=== PATIENT | female | born 1935 | race African-American/Black ===

== ENCOUNTER → 2016-12-23 | Outpatient (CLI) | payer MEDICARE, OTHER | LOC: WI 09:19 | PROVIDERS: ATTEND Family Medicine | DX: Z12.31 Encounter for screening mammogram for malignant neoplasm of breast (principal) | CPT/HCPCS: 77067; G0202 ==

== ENCOUNTER 2017-01-20 00:15 | Emergency (ER) | payer MEDICARE, OTHER ==
[2017-01-20 01:52] LABS: ABSOLUTE EOSINOPHILS # (AUTO) 0.1 10^3/uL (0.0-0.6); ABSOLUTE LYMPHOCYTES (AUTO) 1.3 10^3/uL (0.5-4.7); ABSOLUTE MONOCYTES (AUTO) 0.7 10^3/uL (0.1-1.4); ABSOLUTE NEUT (AUTO) 3.3 10^3/uL (1.7-8.2); BASOPHILS % (AUTO) 0.5 % (0-2); EOSINOPHILS % (AUTO) 1.4 % (0-6); HEMATOCRIT 38.2 % (36.0-47.0); HEMOGLOBIN 12.4 g/dL (12.0-15.5); LYMPHOCYTES % (AUTO) 24.7 % (13-45); MEAN CORPUSCULAR HEMOGLOBIN 27.2 pg (27.0-33.4); MEAN CORPUSCULAR HGB CONC 32.6 g/dL (32.0-36.0); MEAN CORPUSCULAR VOLUME 84 fl (80-97); MONOCYTES % (AUTO) 12.9 % (3-13); RED BLOOD COUNT 4.58 10^6/uL (3.72-5.28); SEGMENTED NEUTROPHILS % (AUTO) 60.5 % (42-78); WHITE BLOOD COUNT 5.4 10^3/uL (4.0-10.5)
[2017-01-20 02:03] LABS: ANION GAP 13 (5-19); BLOOD UREA NITROGEN 27 mg/dL (7-20); CALCIUM 9.9 mg/dL (8.4-10.2); CARBON DIOXIDE 26 mmol/L (22-30); CHLORIDE 98 mmol/L (98-107); GLUCOSE 119 mg/dL (75-110); MAGNESIUM 2.3 mg/dL (1.6-2.3); POTASSIUM 4.4 mmol/L (3.6-5.0); SODIUM 137.2 mmol/L (137-145)
--- NOTE | 2017-01-20 02:54 | ER Document Report ---
ED Blood Pressure Problem - General Chief Complaint: High Blood Pressure Stated Complaint: BLOOD PRESSURE ISSUES Time Seen by Provider: 01/20/17 00:30 Notes: This 81-year-old female presents emergency department complaining of elevated blood pressure with burning in her feet with sudden onset this evening. She states thats how she new her BP was high. She states she has a cuff at home but to afraid to chck so she came to the ER. Otherwise denies any chest pain, blurry vision, headache. PMH s/f Patient states that she recently had a Prolia shot last week. TRAVEL OUTSIDE OF THE [place] IN LAST 30 DAYS: No - Related Data Allergies/Adverse Reactions: No Known Allergies Allergy (Verified 08/25/15 14:09) Past Medical History - Social History Smoking Status: Unknown if Ever Smoked Family History: Reviewed & Not Pertinent Patient has suicidal ideation: No Patient has homicidal ideation: No Renal/ Medical History: Denies: Hx Peritoneal Dialysis - Immunizations Hx Diphtheria, Pertussis, Tetanus Vaccination: No Review of Systems - Review of Systems Constitutional: No symptoms reported EENT: No symptoms reported Cardiovascular: No symptoms reported Respiratory: No symptoms reported Gastrointestinal: No symptoms reported Female Genitourinary: No symptoms reported Musculoskeletal: No symptoms reported Skin: See HPI Hematologic/Lymphatic: No symptoms reported Neurological/Psychological: No symptoms reported Physical Exam - Vital signs Vitals: Temp Pulse Resp BP Pulse Ox 97.6 F 120 H 16 209/125 H 99 01/20/17 00:16 01/20/17 00:16 01/20/17 00:16 01/20/17 00:16 01/20/17 00:16 - Notes Notes: PHYSICAL EXAM GENERAL: Alert, interacts well. HEAD: Normocephalic, atraumatic. EYES: Pupils equal, round, and reactive to light. Extraocular movements intact. ENT: Oral mucosa moist, tongue midline. NECK: Full range of motion. Supple. Trachea midline. LUNGS: Clear to auscultation bilaterally, no wheezes, rales, or rhonchi. No respiratory distress. HEART: Regular rate and rhythm. No murmurs, gallops, or rubs. ABDOMEN: Soft, nondistended, nontender. No guarding, rebound, or rigidity.. Bowel sounds present in all 4 quadrants. EXTREMITIES: Moves all 4 extremities spontaneously. No edema, radial and dorsalis pedis pulses 2/4 bilaterally. No cyanosis. NEUROLOGICAL: Alert and oriented x4. Normal speech. PSYCH: Normal affect, normal mood. SKIN: Warm, dry, normal turgor. No rashes or lesions noted. Course - Re-evaluation Re-evalutation: 01/20/17 07:48 Patient is a 81-year-old female who is hemodynamic stable, no acute distress and afebrile. No clinical suspicion for hypertensive urgency or emergency since patient is asymptomatic. Patient's electrolytes sent to evaluate for any associated hypocalcemia given symptoms are consistent with side effects after Prolia injection. All joints within normal limits. Patient blood pressure monitor has been stable with the systolics in the 160s. Patient is stable for discharge home with instruction to follow-up with primary care in 1 week - Vital Signs Vital signs: Temp Pulse Resp BP Pulse Ox 97.6 F 120 H 13 147/80 H 97 01/20/17 00:16 01/20/17 00:16 01/20/17 02:31 01/20/17 02:31 01/20/17 02:31 - Laboratory Result Diagrams: 01/20/17 01:35 01/20/17 01:35 Laboratory results interpreted by me: 01/20/17 01:35 BUN 27 H Est GFR ( Amer) 52 L Est GFR (Non-Af Amer) 43 L Glucose 119 H Discharge - Discharge Clinical Impression: HTN (hypertension) Condition: Good Disposition: HOME, SELF-CARE Instructions: High Blood Pressure ([facility]) Forms: Elevated Blood Pressure Referrals: OUMAR VACA MD [Primary Care Provider] - Follow up in 3-5 days
[2017-01-20 02:56] VITALS: BP 147/80
--- NOTE | 2017-01-20 11:03 | EKG REPORT ---
SEVERITY:- OTHERWISE NORMAL ECG - SINUS TACHYCARDIA : Confirmed by: Cathi Jiménez MD 20-Jan-2017 11:03:19
== END 2017-01-20 02:51 | disposition home or self-care (01) ==
LOC: ER 00:15
DX: I10 Essential (primary) hypertension (principal)
CPT/HCPCS: 36415; 80048; 83735; 85025; 93005; 93010; 99284

== ENCOUNTER 2017-02-03 19:52 | Inpatient (IN) | payer MEDICARE, OTHER ==
--- NOTE | 2017-02-03 21:18 | ER Document Report ---
ED Medical Screen (RME) - General Chief Complaint: General Weakness Stated Complaint: POSSIBLE SODIUM LEVELS LOW Time Seen by Provider: 02/03/17 21:16 Notes: 81-year-old female, comes emergency department for chief complaint of low sodium , she states she was called by her provider and told it was in the 120s, this is new for her, she was advised to come to the emergency department she reports. She states she was evaluated by Dr. Brown because of feeling weaker than usual and fluctuating blood pressures. She denies any symptoms at this time. She is on hydrochlorothiazide in addition to amlodipine and lisinopril. TRAVEL OUTSIDE OF THE [place] IN LAST 30 DAYS: No - Related Data Allergies/Adverse Reactions: No Known Allergies Allergy (Verified 02/03/17 21:09) Home Medications: Current Home Medications Cetirizine HCl [Zyrtec] 10 mg PO DAILY 02/03/17 [History] Hydrochlorothiazide [Hydrochlorothiazide] 12.5 mg PO BID 02/03/17 [History] Lisinopril [Lisinopril] 10 mg PO DAILY 02/03/17 [History] Ranitidine HCl 150 mg PO DAILY 02/03/17 [History] Past Medical History Renal/ Medical History: Denies: Hx Peritoneal Dialysis - Immunizations Hx Diphtheria, Pertussis, Tetanus Vaccination: No Physical Exam - General General appearance: Appears well In distress: None - Respiratory Respiratory status: No respiratory distress Breath sounds: Normal - Cardiovascular Rhythm: Regular. No: Tachycardia Heart sounds: Normal auscultation, S1 appreciated, S2 appreciated Course - Re-evaluation Re-evalutation: Unable to pull up lab results from earlier, repeating them now.
[2017-02-03 21:56] LABS: ABSOLUTE BASOPHILS # (AUTO) 0.1 10^3/uL (0.0-0.2); ABSOLUTE EOSINOPHILS # (AUTO) 0.1 10^3/uL (0.0-0.6); ABSOLUTE LYMPHOCYTES (AUTO) 1.1 10^3/uL (0.5-4.7); ABSOLUTE MONOCYTES (AUTO) 0.7 10^3/uL (0.1-1.4); BASOPHILS % (AUTO) 0.9 % (0-2); EOSINOPHILS % (AUTO) 1.1 % (0-6); HEMATOCRIT 39.7 % (36.0-47.0); HEMOGLOBIN 12.9 g/dL (12.0-15.5); LYMPHOCYTES % (AUTO) 18.1 % (13-45); MEAN CORPUSCULAR HEMOGLOBIN 27.1 pg (27.0-33.4); MEAN CORPUSCULAR HGB CONC 32.4 g/dL (32.0-36.0); MEAN CORPUSCULAR VOLUME 84 fl (80-97); MONOCYTES % (AUTO) 12.5 % (3-13); RED BLOOD COUNT 4.74 10^6/uL (3.72-5.28); RED CELL DISTRIBUTION WIDTH 13.9 % (11.5-14.0); SEGMENTED NEUTROPHILS % (AUTO) 67.4 % (42-78); WHITE BLOOD COUNT 5.9 10^3/uL (4.0-10.5)
[2017-02-03 22:12] LABS: ANION GAP 14 (5-19); BLOOD UREA NITROGEN 47 mg/dL (7-20); CALCIUM 9.9 mg/dL (8.4-10.2); CARBON DIOXIDE 21 mmol/L (22-30); CHLORIDE 88 mmol/L (98-107); GLUCOSE 124 mg/dL (75-110); SODIUM 122.7 mmol/L (137-145)
[2017-02-03 22:19] LABS: APPEARANCE,URINE CLEAR; BILIRUBIN,URINE NEGATIVE (NEGATIVE); GLUCOSE, URINE NEGATIVE (NEGATIVE); KETONES,URINE NEGATIVE (NEGATIVE); LEUKOCYTE ESTERASE,URINE LARGE (NEGATIVE); NITRITE,URINE NEGATIVE (NEGATIVE); PROTEIN,URINE NEGATIVE (NEGATIVE); URINE SPECIFIC GRAVITY 1.005; UROBILINOGEN,URINE NEGATIVE mg/dL (<2.0)
[2017-02-03 22:29] LABS: BACTERIA,URINE 2+ /HPF
[2017-02-03] MEDS ORDERED: NORMAL SALINE 1000 ML 1,000 ML IV ONE (23:49)
[2017-02-03] MEDS ORDERED: INSULIN REG, HUMAN 100 UNIT/ML 3 ML VIAL (PYX) IV ONE (23:50)
[2017-02-03] MEDS ORDERED: FUROSEMIDE INJ/PF 20 MG/2 ML SDV IV ONE (23:50)
[2017-02-03] MEDS ORDERED: DEXTROSE 50%-WATER 25 GM/50 ML DISP.SYRIN IV ONE (23:50)
[2017-02-04] MEDS: CEPHALEXIN 500 MG CAPSULE PO SCH ×3 (00:03→11:18)
--- NOTE | 2017-02-04 00:09 | ER Document Report ---
ED General - General Chief Complaint: General Weakness Stated Complaint: POSSIBLE SODIUM LEVELS LOW Time Seen by Provider: 02/03/17 21:16 Notes: Patient is a 81-year-old female with past medical history of hypertension, hyperlipidemia, malnourishment who presents after being referred by an outpatient physician for severe hyponatremia. Patient reports for the past several weeks she has had diffuse weakness that has become worse over the last several days. Nothing improves or worsens her symptoms. Denies history of similar symptoms in the past. Notes that she has had very poor oral intake over the last several months. She has been taking both lisinopril and hydrochlorothiazide to control her blood pressure. She denies any chest pain, shortness of breath, vomiting, abdominal pain or diarrhea. No fever or constitutional symptoms. Denies any focal weakness. TRAVEL OUTSIDE OF THE [place] IN LAST 30 DAYS: No - Related Data Allergies/Adverse Reactions: No Known Allergies Allergy (Verified 02/03/17 21:09) Home Medications: Current Home Medications Cetirizine HCl [Zyrtec] 10 mg PO DAILY 02/03/17 [History] Hydrochlorothiazide [Hydrochlorothiazide] 12.5 mg PO BID 02/03/17 [History] Lisinopril [Lisinopril] 10 mg PO DAILY 02/03/17 [History] Ranitidine HCl 150 mg PO DAILY 02/03/17 [History] Past Medical History - General Information source: Patient - Social History Smoking Status: Never Smoker Frequency of alcohol use: None Drug Abuse: None Lives with: Family Family History: Reviewed & Not Pertinent Patient has suicidal ideation: No Patient has homicidal ideation: No Renal/ Medical History: Denies: Hx Peritoneal Dialysis - Immunizations Hx Diphtheria, Pertussis, Tetanus Vaccination: No Review of Systems - Review of Systems Notes: Constitutional: Negative for fever. HENT: Negative for sore throat. Eyes: Negative for visual changes. Cardiovascular: Negative for chest pain. Respiratory: Negative for shortness of breath. Gastrointestinal: Negative for abdominal pain, vomiting or diarrhea. Genitourinary: Negative for dysuria. Musculoskeletal: Negative for back pain. Skin: Negative for rash. Neurological: Negative for headaches, weakness or numbness. 10 point ROS negative except as marked above and in HPI. Physical Exam - Vital signs Vitals: Resp Pulse Ox 20 97 02/04/17 00:17 02/04/17 00:17 Interpretation: Normal Notes: PHYSICAL EXAMINATION: GENERAL: Appears slightly older than stated age, malnourished in appearance. HEAD: Atraumatic, normocephalic. EYES: Pupils equal round and reactive to light, extraocular movements intact, sclera anicteric, conjunctiva are normal. ENT: nares patent, oropharynx clear without exudates. Moist mucous membranes. NECK: Normal range of motion, supple without lymphadenopathy LUNGS: Breath sounds clear to auscultation bilaterally and equal. No wheezes rales or rhonchi. HEART: Regular rate and rhythm without murmurs ABDOMEN: Soft, nontender, normoactive bowel sounds. No guarding, no rebound. No masses appreciated. EXTREMITIES: Normal range of motion, no pitting or edema. No cyanosis. NEUROLOGICAL: No focal neurological deficits. Moves all extremities spontaneously and on command. PSYCH: Normal mood, normal affect. SKIN: Warm, Dry, normal turgor, no rashes or lesions noted. Course - Re-evaluation Re-evalutation: 02/04/17 00:06 Patient presents with generalized weakness, found to have a prerenal azotemia with associated hyponatremia and hyperkalemia. I suspect this is secondary to poor oral intake in the setting of both hydrochlorothiazide and lisinopril use. Patient's urine however is not significantly concentrated. She does not have any significant EKG changes in the setting of her potassium of 6. Her hyperkalemia will be treated with insulin and dextrose as well as a low dose of 10 mg of IV furosemide. She will be given 1 L of IV fluids. She has been placed on a cardiac/vascular sonographer. I discussed this case with Dr. Wong who will admit for Dr. Brown. - Vital Signs Vital signs: Temp Pulse Resp BP Pulse Ox 97.9 F 104 H 18 149/69 H 100 02/04/17 02:42 02/04/17 02:47 02/04/17 02:42 02/04/17 02:42 02/04/17 02:42 - Laboratory Result Diagrams: 02/03/17 21:40 02/03/17 21:40 Laboratory results interpreted by me: 02/03/17 02/03/17 02/04/17 21:40 21:48 00:51 Sodium 122.7 L Potassium 6.0 H* Chloride 88 L Carbon Dioxide 21 L BUN 47 H Creatinine 1.90 H Est GFR ( Amer) 31 L Est GFR (Non-Af Amer) 26 L Glucose 124 H POC Glucose 170 H Ur Leukocyte Esterase LARGE H - Diagnostic Test Radiology reviewed: Image reviewed, Reports reviewed Radiology results interpreted by me: 02/04/17 06:02 Chest x-ray: No acute infiltrate or pneumothorax. No mass. - EKG Interpretation by Me Additional EKG results interpreted by me: 02/04/17 00:07 Normal sinus rhythm. Rate 79. No ST elevations or depressions. QTC is 436. Discharge - Discharge Clinical Impression: Prerenal azotemia, Hyponatremia, Hyperkalemia, Cystitis, Generalized weakness Disposition: ADMITTED INPATIENT Admitting Provider: Brown Unit Admitted: Telemetry
--- NOTE | 2017-02-04 01:58 | RADIOLOGY REPORT (SQ) ---
EXAM DESCRIPTION: CHEST SINGLE VIEW COMPLETED DATE/TIME: 02/04/2017 1:06 am REASON FOR STUDY: eval for lung mass, acute hyponatremia COMPARISON: 08/25/2015. CT, 02/16/2016. EXAM PARAMETERS: NUMBER OF VIEWS: One view. TECHNIQUE: Single frontal radiographic view of the chest acquired. RADIATION DOSE: NA LIMITATIONS: None. FINDINGS: LUNGS AND PLEURA: No opacities, masses or pneumothorax. No pleural effusion. MEDIASTINUM AND HILAR STRUCTURES: No masses. Contour normal. HEART AND VASCULAR STRUCTURES: Moderate enlargement of the cardiac silhouette. Atherosclerosis. BONES: No acute findings. HARDWARE: None in the chest. OTHER: No other significant finding. IMPRESSION: NO ACUTE RADIOGRAPHIC FINDING IN THE CHEST. Moderate chronic enlargement of the cardiac silhouette. TECHNICAL DOCUMENTATION: JOB ID: [id number]
[2017-02-04] MEDS ORDERED: FENTANYL CITRATE INJ/PF 100 MCG/2 ML AMPUL IV ONE (02:11)
[2017-02-04] MEDS ORDERED: NORMAL SALINE 1000 ML 1,000 ML IV PRN ×2 (04:05→06:07)
[2017-02-04 06:25] LABS: HEMATOCRIT 38.4 % (36.0-47.0); HEMOGLOBIN 12.3 g/dL (12.0-15.5); HGB HCT DIFFERENCE -1.5; MEAN CORPUSCULAR HGB CONC 32.1 g/dL (32.0-36.0); MEAN CORPUSCULAR VOLUME 84 fl (80-97); RED BLOOD COUNT 4.56 10^6/uL (3.72-5.28); RED CELL DISTRIBUTION WIDTH 13.9 % (11.5-14.0); WHITE BLOOD COUNT 6.5 10^3/uL (4.0-10.5)
[2017-02-04 06:42] LABS: ANION GAP 13 (5-19); BLOOD UREA NITROGEN 43 mg/dL (7-20); CALCIUM 9.1 mg/dL (8.4-10.2); CARBON DIOXIDE 21 mmol/L (22-30); CHLORIDE 93 mmol/L (98-107); CREATININE RESULT 1.64 mg/dL (0.52-1.25); GLUCOSE 109 mg/dL (75-110); POTASSIUM 5.4 mmol/L (3.6-5.0); SODIUM 126.8 mmol/L (137-145)
--- NOTE | 2017-02-04 10:21 | RADIOLOGY REPORT (SQ) ---
EXAM DESCRIPTION: U/S RETROPERITON (RENAL/AORTA) COMPLETED DATE/TIME: 02/04/2017 10:10 am REASON FOR STUDY: pre-renal azotemia. Thank you. COMPARISON: None. TECHNIQUE: Dynamic and static grayscale images acquired of the kidneys and bladder and recorded on P ACS. Additional selected color Doppler and spectral images recorded. LIMITATIONS: None. FINDINGS: RIGHT KIDNEY: Normal size. Normal echogenicity. No solid or suspicious masses. No hydronep hrosis. No calcifications. LEFT KIDNEY: Normal size. Normal echogenicity. No solid or suspicious masses. No hydronephrosis. No calcifications. BLADDER: No masses. OTHER FINDINGS: No other significant finding. IMPRESSION: NORMAL RENAL AND BLADDER ULTRASOUND. TECHNICAL DOCUMENTATION: JOB ID: [id number] [employer]- All Rights Reserved
[2017-02-04] MEDS ORDERED: CEFTRIAXONE SODIUM 500 MG in DEXTROSE 5%-WATER 25 ML IV SCH (14:00)
[2017-02-04 14:34] LABS: ALANINE AMINOTRANSFERASE 26 U/L (9-52); ALBUMIN 4.1 g/dL (3.5-5.0); ALKALINE PHOSPHATASE 63 U/L (38-126); ANION GAP 12 (5-19); ASPARTATE AMINO TRANSFERASE 25 U/L (14-36); BILIRUBIN,DIRECT 0.2 mg/dL (0.0-0.4); BILIRUBIN,TOTAL 0.5 mg/dL (0.2-1.3); BLOOD UREA NITROGEN 34 mg/dL (7-20); CARBON DIOXIDE 22 mmol/L (22-30); CHLORIDE 93 mmol/L (98-107); CREATININE RESULT 1.36 mg/dL (0.52-1.25); GLUCOSE 143 mg/dL (75-110); POTASSIUM 5.1 mmol/L (3.6-5.0); SODIUM 126.5 mmol/L (137-145); TOTAL PROTEIN 7.9 g/dL (6.3-8.2)
--- NOTE | 2017-02-04 14:37 | PDOC H&P ---
History of Present Illness Admission Date/PCP: 02/04/17 03:26 OUMAR VACA MD History of Present Illness: DANYA MENDENHALL is a 81 year old female, she has a history of hypertension she came to the emergency room last night for evaluation of abnormal lab work. The history was that she was referred to the emergency room by an outpatient physician for evaluation of severe hyponatremia, in the emergency room she was evaluated the lab work that was done suggest acute kidney injury with hyperkalemia and hyponatremia. His serum creatinine was 1.9, the serum potassium was 6, the serum was 122 the urine dipstick did not show any proteinuria, no hematuria was positive for leukocyte esterase with bacteriuria. She was treated in the emergency room for hyperkalemia, admission was advised patient was seen with family in the room she stated that she has pain in the leg , she has moist history of kidney disease, heart disease with a disease that she knows of. The kidney ultrasound that was done was normal Past Medical History Cardiac Medical History: Reports: Hypertension Psychiatric Medical History: Denies: Depression Social History Lives with: Family Smoking Status: Never Smoker Frequency of Alcohol Use: None Hx Recreational Drug Use: No Drugs: None Hx Prescription Drug Abuse: No Family History Family History: Reviewed & Not Pertinent Parental Family History Reviewed: Yes Children Family History Reviewed: Yes Sibling(s) Family History Reviewed.: Yes Medication/Allergy Home Medications: Amlodipine Besylate [Norvasc 5 mg Tablet] 5 mg PO DAILY 02/04/17 Hydrochlorothiazide 12.5 mg PO DAILY 02/04/17 Lisinopril [Prinivil 10 mg Tablet] 10 mg PO DAILY 02/04/17 Ranitidine HCl [Zantac 150 mg Tablet] 150 mg PO BID 02/04/17 Allergies/Adverse Reactions: No Known Allergies Allergy (Verified 02/03/17 21:09) Review of Systems Constitutional: ABSENT: chills, fever(s), headache(s), weight gain, weight loss Eyes: ABSENT: visual disturbances Ears: ABSENT: hearing changes Cardiovascular: ABSENT: chest pain, dyspnea on exertion, edema, orthropnea, palpitations Respiratory: ABSENT: cough, hemoptysis Gastrointestinal: ABSENT: abdominal pain, constipation, diarrhea, hematemesis, hematochezia, nausea, vomiting Genitourinary: ABSENT: dysuria, hematuria Musculoskeletal: PRESENT: other - leg pain Integumentary: ABSENT: rash, wounds Neurological: PRESENT: paresthesias Psychiatric: ABSENT: anxiety, depression, homidical ideation, suicidal ideation Endocrine: ABSENT: cold intolerance, heat intolerance, menstrual abnormalities, polydipsia, polyuria Hematologic/Lymphatic: ABSENT: easy bleeding, easy bruising, lymphadenopathy Physical Exam Vital Signs: Temp Pulse Resp BP Pulse Ox 98.7 F 71 18 129/73 H 100 02/04/17 11:16 02/04/17 11:16 02/04/17 11:16 02/04/17 11:16 02/04/17 11:16 General appearance: PRESENT: no acute distress, well-developed, well-nourished Head exam: PRESENT: atraumatic, normocephalic Eye exam: PRESENT: conjunctiva pink, EOMI, PERRLA Ear exam: PRESENT: normal external ear exam Mouth exam: PRESENT: moist, tongue midline Neck exam: PRESENT: full ROM Respiratory exam: PRESENT: clear to auscultation devorah Cardiovascular exam: PRESENT: RRR, +S1, +S2 Pulses: PRESENT: normal dorsalis pedis pul, +2 pedal pulses bilateral Vascular exam: PRESENT: normal capillary refill GI/Abdominal exam: PRESENT: normal bowel sounds, soft Rectal exam: PRESENT: deferred Neurological exam: PRESENT: alert, CN II-XII grossly intact Skin exam: PRESENT: dry, intact, warm Results Laboratory Results: 02/04/17 05:33 02/04/17 02/04/17 05:33 05:33 WBC 6.5 RBC 4.56 Hgb 12.3 Hct 38.4 MCV 84 MCH 27.0 MCHC 32.1 RDW 13.9 Plt Count 238 Sodium 126.8 L Potassium 5.4 H Chloride 93 L Carbon Dioxide 21 L Anion Gap 13 BUN 43 H Creatinine 1.64 H Est GFR ( Amer) 37 L Est GFR (Non-Af Amer) 30 L Glucose 109 Calcium 9.1 Impressions: Chest X-Ray 02/04/17 00:00 IMPRESSION: NO ACUTE RADIOGRAPHIC FINDING IN THE CHEST. Moderate chronic enlargement of the cardiac silhouette. Renal Ultrasound 02/04/17 08:00 IMPRESSION: NORMAL RENAL AND BLADDER ULTRASOUND. Assessment & Plan - Diagnosis (1) Acute kidney injury Is this a current diagnosis for this admission?: YesPlan: She has acute kidney injury associated with hyperkalemia and hyponatremia, the kidney ultrasound was negative for hydronephrosis normal-sized kidney the etiology of the acute kidney injury and the hyperkalemia could be related to hemodynamic changes from lisinopril, a suggestion that could have underlining renal artery stenosis., Lisinopril will be held at this time, the urine dipstick was negative for proteinuria or blood, this suggests that glomerular disease is unlikely (2) Hyperkalemia Is this a current diagnosis for this admission?: Yes (3) Hyponatremia Is this a current diagnosis for this admission?: Yes (4) Urinary tract infection Qualifiers: Urinary tract infection type: site unspecified Hematuria presence: without hematuria Qualified Code(s): N39.0 - Urinary tract infection, site not specified Is this a current diagnosis for this admission?: YesPlan: She was treated with IV antibiotic
[2017-02-04] MEDS ORDERED: AMLODIPINE BESYLATE 5 MG TABLET PO ONE (15:00)
--- NOTE | 2017-02-04 17:38 | EKG REPORT ---
SEVERITY:- BORDERLINE ECG - SINUS RHYTHM PROBABLE LEFT ATRIAL ABNORMALITY : Confirmed by: Mj Rome 04-Feb-2017 17:37:25
[2017-02-04] MEDS: CEFTRIAXONE 1 GM/D5W RTU 1 GM/50 ML RTUPB IV SCH (18:08)
--- NOTE | 2017-02-04 19:34 | RADIOLOGY REPORT (SQ) ---
EXAM DESCRIPTION: U/S LTD DUPLEX ART/ANTOINETTE FLOW COMPLETED DATE/TIME: 02/04/2017 7:08 pm REASON FOR STUDY: suspect renal artery stenosis COMPARISON: None. TECHNIQUE: Realtime and static grayscale images acquired. Selected color Doppler, velocities and spe ctral images recorded. LIMITATIONS: None. FINDINGS: RIGHT KIDNEY: RENAL ARTERY VELOCITIES: 77.6 cm/sec. Segmental artery velocity 38.2 cm/sec. RENAL VEIN: Color doppler flow present, patent. VELOCITY RATIO: 1.48. Normal waveforms. KIDNEY: Normal size. No significant pathology. LEFT KIDNEY: RENAL ARTERY VELOCITIES: 64.8 cm/sec. Segmental artery velocity 34.6 cm/sec. RENAL VEIN: Color doppler flow present, patent. VELOCITY RATIO: 1.23. Normal waveforms. KIDNEY: Normal size. No significant pathology. BLADDER: Not imaged OTHER: No other significant finding. IMPRESSION: NO DOPPLER EVIDENCE OF HEMODYNAMICALLY SIGNIFICANT RENAL ARTERY STENOSIS. COMMENT: NORMAL RENAL ARTERY/AORTA VELOCITY RATIO IS LESS THAN OR EQUAL TO 3.5. TECHNICAL DOCUMENTATION: JOB ID: [id number] [employer]- All Rights Reserved
[2017-02-05 10:14] LABS: ALANINE AMINOTRANSFERASE 27 U/L (9-52); ALKALINE PHOSPHATASE 62 U/L (38-126); ANION GAP 12 (5-19); ASPARTATE AMINO TRANSFERASE 26 U/L (14-36); BILIRUBIN,DIRECT 0.3 mg/dL (0.0-0.4); BILIRUBIN,TOTAL 0.5 mg/dL (0.2-1.3); BLOOD UREA NITROGEN 21 mg/dL (7-20); CARBON DIOXIDE 20 mmol/L (22-30); CHLORIDE 99 mmol/L (98-107); CREATININE RESULT 1.12 mg/dL (0.52-1.25); GLUCOSE 111 mg/dL (75-110); POTASSIUM 5.6 mmol/L (3.6-5.0); SODIUM 130.5 mmol/L (137-145); TOTAL PROTEIN 8.1 g/dL (6.3-8.2)
[2017-02-05] MEDS: AMLODIPINE BESYLATE 5 MG TABLET PO SCH (10:33)
[2017-02-05] MEDS ORDERED: SODIUM POLYSTYRENE SULFONATE 15 GM/60 ML PO ONE (11:30)
--- NOTE | 2017-02-05 13:44 | PDOC PROGRESS REPORT ---
Subjective Progress Note for:: 02/05/17 Subjective:: She was seen by the bedside, she has no new complaint, she was admitted yesterday for evaluation of acute kidney injury with associated hypokalemia, hyponatremia. The serum creatinine from today's lab work is 1.12, the potassium is 5.6 acute kidney injury is most likely related from the use of lisinopril, with hemodynamic consequences due to intraglomerular hypotension with reduced GFR and hyperkalemia. She was started on lisinopril yesterday, kidney ultrasound was negative for hydronephrosis, kidney size is normal. Physical Exam Vital Signs: Temp Pulse Resp BP Pulse Ox 98.5 F 67 18 139/81 H 100 02/05/17 11:12 02/05/17 11:12 02/05/17 11:12 02/05/17 11:12 02/05/17 11:12 Intake & Output 02/04/17 02/05/17 02/06/17 06:59 06:59 06:59 Intake Total 2009 Balance 2009 General appearance: PRESENT: no acute distress Eye exam: PRESENT: PERRLA Respiratory exam: PRESENT: clear to auscultation devorah Cardiovascular exam: PRESENT: +S1, +S2 GI/Abdominal exam: PRESENT: soft Neurological exam: PRESENT: alert Results Laboratory Results: 02/04/17 05:33 02/05/17 09:10 02/04/17 02/05/17 14:10 09:10 Sodium 126.5 L 130.5 L Potassium 5.1 H 5.6 H Chloride 93 L 99 Carbon Dioxide 22 20 L Anion Gap 12 12 BUN 34 H 21 H Creatinine 1.36 H 1.12 Est GFR ( Amer) 45 L 57 L Est GFR (Non-Af Amer) 38 L 47 L Glucose 143 H 111 H Calcium 9.0 9.0 Total Bilirubin 0.5 0.5 AST 25 26 ALT 26 27 Alkaline Phosphatase 63 62 Total Protein 7.9 8.1 Albumin 4.1 4.0 Impressions: Chest X-Ray 02/04/17 00:00 IMPRESSION: NO ACUTE RADIOGRAPHIC FINDING IN THE CHEST. Moderate chronic enlargement of the cardiac silhouette. Vascular Ultrasound 02/04/17 00:00 IMPRESSION: NO DOPPLER EVIDENCE OF HEMODYNAMICALLY SIGNIFICANT RENAL ARTERY STENOSIS. Renal Ultrasound 02/04/17 08:00 IMPRESSION: NORMAL RENAL AND BLADDER ULTRASOUND. Assessment & Plan - Diagnosis (1) Acute kidney injury Is this a current diagnosis for this admission?: YesPlan: Resolved ,probably due to lisinopril,dehydration (2) Hyperkalemia Is this a current diagnosis for this admission?: YesPlan: Rx with kayexalate (3) Hyponatremia Is this a current diagnosis for this admission?: Yes (4) Urinary tract infection Qualifiers: Urinary tract infection type: site unspecified Hematuria presence: without hematuria Qualified Code(s): N39.0 - Urinary tract infection, site not specified Is this a current diagnosis for this admission?: YesPlan: Continue IV antibiotic
[2017-02-05] MEDS: CEFTRIAXONE 1 GM/D5W RTU 1 GM/50 ML RTUPB IV SCH (17:31)
[2017-02-06 04:37] LABS: HEMATOCRIT 37.7 % (36.0-47.0); HEMOGLOBIN 12.2 g/dL (12.0-15.5); HGB HCT DIFFERENCE -1.1; MEAN CORPUSCULAR HEMOGLOBIN 27.4 pg (27.0-33.4); MEAN CORPUSCULAR HGB CONC 32.4 g/dL (32.0-36.0); MEAN CORPUSCULAR VOLUME 85 fl (80-97); RED BLOOD COUNT 4.46 10^6/uL (3.72-5.28); RED CELL DISTRIBUTION WIDTH 14.2 % (11.5-14.0); WHITE BLOOD COUNT 4.4 10^3/uL (4.0-10.5)
[2017-02-06 04:50] LABS: ANION GAP 11 (5-19); BLOOD UREA NITROGEN 16 mg/dL (7-20); CALCIUM 8.5 mg/dL (8.4-10.2); CARBON DIOXIDE 25 mmol/L (22-30); CHLORIDE 101 mmol/L (98-107); CREATININE RESULT 0.94 mg/dL (0.52-1.25); GLUCOSE 99 mg/dL (75-110)
[2017-02-06 05:03] LABS: POTASSIUM 4.2 mmol/L (3.6-5.0)
[2017-02-06 07:55] VITALS: BP 140/75
[2017-02-06] MEDS: AMLODIPINE BESYLATE 5 MG TABLET PO SCH (09:49)
--- NOTE | 2017-02-06 11:35 | PDOC DISCHARGE SUMMARY ---
General - Admit/Disc Date/PCP Admission Date/Primary Care Provider: 02/04/17 03:26 OUMAR VACA MD Discharge Date: 02/06/17 - Discharge Diagnosis (1) Acute kidney injury Is this a current diagnosis for this admission?: YesSummary: Currently all resolved (2) Hypertension Is this a current diagnosis for this admission?: YesSummary: Adjust the Norvasc 5 mg p.o. twice a day while DC the lisinopril and hydrochlorothiazide at this point. Check a blood pressure at home daily and reevaluate in 3 days again (3) Generalized weakness Is this a current diagnosis for this admission?: YesSummary: Currently all resolved patients walk in the hallway and a p.o. intake is good (4) Hyperkalemia Is this a current diagnosis for this admission?: YesSummary: Most likely due to acute renal failure the lisinopril currently all resolved (5) Hyponatremia Is this a current diagnosis for this admission?: YesSummary: All resolved with DC the hydrochlorothiazide (6) Urinary tract infection Is this a current diagnosis for this admission?: YesSummary: Patient already received Rocephin IV and will give her Cipro on discharge and follow the cultures - Additional Information Discharge Diet: Cardiac Discharge Activity: Activity As Tolerated Home Medications: Ranitidine HCl [Zantac 150 mg Tablet] 150 mg PO BID 02/04/17 Amlodipine Besylate [Norvasc 5 mg Tablet] 5 mg PO DAILY #60 tablet 02/06/17 Ciprofloxacin HCl [Cipro 500 mg Tablet] 500 mg PO BID #14 tablet 02/06/17 History of Present Illness History of Present Illness: DANYA MENDENHALL is a 81 year old female This is a 81-year-old female present in the office because of the weakness in patients have a blood draw and patient's sodium was 120 and patient was sent to the emergency departments for further evaluation and treatments Hospital Course Hospital Course: This is a 81-year-old female with a sodium was 120 and at this point patient was sent to the ER where patient's sodium was 126 and patient's kidney function is also worse and most likely patient with acute renal failure and hyperkalemia and hyponatremiaDue to the underlying dehydration and urinary tract infections and patient was started on IV fluid and IV antibiotics and patient's lisinopril and hydrochlorothiazide was DC'd . Patient have a ultrasound for the kidney and a vascular ultrasound was done was all stable. Patient's otherwise doing much better and patient's is some more wants to go home today discussed with the family in the room with all the test result and the follow-up and patient was following 3 days Physical Exam Vital Signs: Temp Pulse Resp BP Pulse Ox 97.8 F 68 18 140/75 H 99 02/06/17 07:12 02/06/17 07:12 02/06/17 07:12 02/06/17 07:12 02/06/17 07:12 Intake & Output 02/05/17 02/06/17 02/07/17 06:59 06:59 06:59 Intake Total 2009 2856 Balance 2009 2856 General appearance: PRESENT: no acute distress, well-developed, well-nourished Head exam: PRESENT: atraumatic, normocephalic Eye exam: PRESENT: conjunctiva pink, EOMI, PERRLA. ABSENT: scleral icterus Ear exam: PRESENT: normal external ear exam Mouth exam: PRESENT: moist, tongue midline Neck exam: PRESENT: full ROM. ABSENT: carotid bruit, JVD, lymphadenopathy, thyromegaly Respiratory exam: PRESENT: clear to auscultation devorah Cardiovascular exam: PRESENT: RRR. ABSENT: diastolic murmur, rubs, systolic murmur Pulses: PRESENT: normal dorsalis pedis pul, +2 pedal pulses bilateral Vascular exam: PRESENT: normal capillary refill GI/Abdominal exam: PRESENT: normal bowel sounds, soft. ABSENT: distended, guarding, mass, organolmegaly, rebound, tenderness Rectal exam: PRESENT: deferred Neurological exam: PRESENT: alert, awake, oriented to person, oriented to place , oriented to time, oriented to situation, CN II-XII grossly intact. ABSENT: motor sensory deficit Psychiatric exam: PRESENT: appropriate affect, normal mood. ABSENT: homicidal ideation, suicidal ideation Skin exam: PRESENT: dry, intact, warm. ABSENT: cyanosis, rash Results Laboratory Results: 02/06/17 04:10 02/06/17 04:10 02/06/17 02/06/17 04:10 04:10 WBC 4.4 RBC 4.46 Hgb 12.2 Hct 37.7 MCV 85 MCH 27.4 MCHC 32.4 RDW 14.2 H Plt Count 216 Sodium 137.0 Potassium 4.2 D Chloride 101 Carbon Dioxide 25 Anion Gap 11 BUN 16 Creatinine 0.94 Est GFR ( Amer) > 60 Est GFR (Non-Af Amer) 57 L Glucose 99 Calcium 8.5 Impressions: Chest X-Ray 02/04/17 00:00 IMPRESSION: NO ACUTE RADIOGRAPHIC FINDING IN THE CHEST. Moderate chronic enlargement of the cardiac silhouette. Vascular Ultrasound 02/04/17 00:00 IMPRESSION: NO DOPPLER EVIDENCE OF HEMODYNAMICALLY SIGNIFICANT RENAL ARTERY STENOSIS. Renal Ultrasound 02/04/17 08:00 IMPRESSION: NORMAL RENAL AND BLADDER ULTRASOUND. Plan Time Spent: Greater than 30 Minutes - DC the lisinopril and hydrochlorothiazide and jadjust norvasc and following the office in 1 week and recheck the blood pressure and Chem-7
== END 2017-02-06 12:46 | disposition home or self-care (01) | DRG 683 ==
LOC: ER 19:52 → EH 02-04 00:42 → INTOOBSV 02-04 00:42 → UNDOADMOB 02-04 00:42 → 4N 02-04 02:38 → EH 02-04 02:38 → 4N 02-04 03:26 → OBSVTOIN 02-04 03:26 → EH 02-04 03:26
PROVIDERS: ADMIT Family Medicine; ATTEND Family Medicine
DX: N17.9 Acute kidney failure, unspecified (principal); E87.1 Hypo-osmolality and hyponatremia; N39.0 Urinary tract infection, site not specified; E87.5 Hyperkalemia; I10 Essential (primary) hypertension; Z79.899 Other long term (current) drug therapy
CPT/HCPCS: 36415; 71010; 76770; 80048; 80053; 81001; 82962; 85025; 85027; 87086; 87088; 87186; 93005; 93010; 93976; 96374; 96375; 99285; G0378; G8978-GP; G8979-GP; G8980-GP; J0696; J1815; J1940; J3010; J3490; J7030

== ENCOUNTER 2017-08-23 09:35 | Day surgery (SDC) | payer MEDICARE, OTHER ==
[~2017-08-23 09:35] MED LIST: BUPIVACAINE HCL 0.75% INJ/PF (7.5 MG/1 ML) 10 ML SDV OD PRN; KETOROLAC TROMETHAMINE 0.45% 4 DROP/0.4 ML DROPERETTE OD PRN; LIDOCAINE 4% INJ/PF (40 MG/ML) 5 ML AMPUL OD PRN
[2017-08-23] MEDS: TROPICAMIDE 1% OPH SOLN 3 ML OD PRN ×3 (10:15→10:35)
[2017-08-23] MEDS: CYCLOPENTOLATE 0.2%/PHENYLEPHRINE 1% OPH SOLN 2 ML OD PRN ×3 (10:15→10:35)
[2017-08-23] MEDS: BESIFLOXACIN HCL 0.6% OPH SUSP 5 ML BOTTLE OD PRN ×3 (10:15→11:20)
[2017-08-23] MEDS: TETRACAINE HCL 0.5% OPH SOLN 0.6 ML DROPERETTE OD PRN ×3 (10:16→10:55)
[2017-08-23] MEDS ORDERED: EPINEPHRINE INJ/PF 1 MG/1 ML AMPULE ONE (10:18)
[2017-08-23] MEDS ORDERED: LIDOCAINE 1% INJ-PF (10 MG/ML) 30 ML SDV ONE (10:19)
[2017-08-23] MEDS ORDERED: TOBRAMYCIN SULFATE/DEXAMETH OPH OINTMENT 3.5 GM ONE (10:19)
[2017-08-23] MEDS ORDERED: CHONDR SU A NA/HYALUR INTRAOC KIT (SURGICARE) ONE (10:19)
[2017-08-23] MEDS ORDERED: MIDAZOLAM 2 MG/2 ML INJ ONE (10:39)
== END 2017-08-23 12:15 | disposition home or self-care (01) ==
LOC: SC 09:35
PROVIDERS: ATTEND Ophthalmology
PROC: 089230Z Drainage of Right Anterior Chamber with Drainage Device, Percutaneous Approach (ICD-10-PCS; 2017-08-23)
PROC: 08RJ3JZ Replacement of Right Lens with Synthetic Substitute, Percutaneous Approach (ICD-10-PCS; principal; 2017-08-23 10:45)
DX: H25.11 Age-related nuclear cataract, right eye (principal); H40.1111 Primary open-angle glaucoma, right eye, mild stage; I10 Essential (primary) hypertension; K21.9 Gastro-esophageal reflux disease without esophagitis; Z79.899 Other long term (current) drug therapy
CPT/HCPCS: 0191T; 66984; 142; C1783; J0171; J2250; J3490; V2630

== ENCOUNTER 2017-09-06 07:39 | Day surgery (SDC) | payer MEDICARE, OTHER ==
[~2017-09-06 07:39] MED LIST changes: -BUPIVACAINE HCL 0.75% INJ/PF (7.5 MG/1 ML) 10 ML SDV OD PRN; -KETOROLAC TROMETHAMINE 0.45% 4 DROP/0.4 ML DROPERETTE OD PRN; +KETOROLAC TROMETHAMINE 0.45% 4 DROP/0.4 ML DROPERETTE OS PRN; -LIDOCAINE 4% INJ/PF (40 MG/ML) 5 ML AMPUL OD PRN
[2017-09-06] MEDS: TETRACAINE HCL 0.5% OPH SOLN 0.6 ML DROPERETTE OS PRN ×3 (08:08→08:55)
[2017-09-06] MEDS: CYCLOPENTOLATE 0.2%/PHENYLEPHRINE 1% OPH SOLN 2 ML OS PRN ×3 (08:09→08:35)
[2017-09-06] MEDS: TROPICAMIDE 1% OPH SOLN 3 ML OS PRN ×3 (08:09→08:35)
[2017-09-06] MEDS: BESIFLOXACIN HCL 0.6% OPH SUSP 5 ML BOTTLE OS PRN ×4 (08:10→09:23)
[2017-09-06] MEDS ORDERED: MIDAZOLAM 2 MG/2 ML INJ ONE (08:37)
[2017-09-06] MEDS ORDERED: FENTANYL CITRATE INJ/PF 100 MCG/2 ML AMPUL ONE (08:38)
[2017-09-06] MEDS ORDERED: ONDANSETRON HCL INJ/PF 4 MG/2 ML SDV ONE (08:38)
[2017-09-06] MEDS: CHONDR SU A NA/HYALUR INTRAOC KIT (SURGICARE) ONE ×2 (09:06)
[2017-09-06] MEDS: EPINEPHRINE INJ/PF 1 MG/1 ML AMPULE ONE ×2 (09:06)
[2017-09-06] MEDS: LIDOCAINE 1% INJ-PF (10 MG/ML) 30 ML SDV ONE ×2 (09:06)
[2017-09-06] MEDS: TOBRAMYCIN SULFATE/DEXAMETH OPH OINTMENT 3.5 GM ONE ×2 (09:23)
== END 2017-09-06 10:00 | disposition home or self-care (01) ==
LOC: SC 07:39
PROVIDERS: ATTEND Ophthalmology
PROC: 089330Z Drainage of Left Anterior Chamber with Drainage Device, Percutaneous Approach (ICD-10-PCS; 2017-09-06)
PROC: 08RK3JZ Replacement of Left Lens with Synthetic Substitute, Percutaneous Approach (ICD-10-PCS; principal; 2017-09-06 09:00)
DX: H25.12 Age-related nuclear cataract, left eye (principal); H40.1121 Primary open-angle glaucoma, left eye, mild stage; Z98.41 Cataract extraction status, right eye; I10 Essential (primary) hypertension; I49.9 Cardiac arrhythmia, unspecified; K21.9 Gastro-esophageal reflux disease without esophagitis; Z79.899 Other long term (current) drug therapy
CPT/HCPCS: 0191T; 66984; 142; C1783; J0171; J2250; J2405; J3010; J3490; V2630

== ENCOUNTER 2018-01-29 08:54 | Emergency (ER) | payer MEDICARE, OTHER ==
--- NOTE | 2018-01-29 09:00 | ER Document Report ---
ED General <DARLYN BRUNER - Last Filed: 01/29/18 10:29> - General Mode of Arrival: Medic Information source: Emergency Med Personnel TRAVEL OUTSIDE OF THE [place] IN LAST 30 DAYS: No <KATHARINE LEO - Last Filed: 01/30/18 18:09> - General Stated Complaint: POSSIBLE STROKE Time Seen by Provider: 01/29/18 08:56 Notes: The patient fell at a [employer], fractured her right patella. She was seen at [facility], where she was kept overnight. Her discharge diagnoses included a urinary tract infection. (DARLYN BRUNER) Patient presents to the emergency department via EMS for a possible stroke. Family states the patient attempted to use the restroom again around [id number] and noticed she had left sided weakness. Family at bedside states the patient's last known well was approximately 0500. They also state the patient recently fractured her right knee cap 6 days ago and was seen at [facility]. EMS reports a blood pressure of 200/108. Upon arrival to the emergency department patient had a systolic of 186. (KATHARINE LEO) - Related Data Allergies/Adverse Reactions: No Known Allergies Allergy (Verified 02/03/17 21:09) Past Medical History - General Information source: Relative, Emergency Med Personnel Cannot obtain history due to: Other - Social History Smoking Status: Unknown if Ever Smoked Family History: Reviewed & Not Pertinent - Past Medical History Cardiac Medical History: Reports: Hx Hypertension - MEDICATION Past Surgical History: Reports: Hx Hysterectomy - Immunizations Hx Diphtheria, Pertussis, Tetanus Vaccination: No <KATHARINE LEO - Last Filed: 01/30/18 18:09> Review of Systems - Review of Systems -: Yes ROS unobtainable due to patient's medical condition <KATHARINE LEO - Last Filed: 01/30/18 18:09> Physical Exam <DARLYN BRUNER - Last Filed: 01/29/18 10:29> <KATHARINE LEO - Last Filed: 01/30/18 18:09> - Vital signs Vitals: Resp Pulse Ox 17 99 01/29/18 09:16 01/29/18 09:16 - Notes Notes: The patient seemed to become more alert after her daughter arrived. She is unable to control the muscles in her face, she seems to clench her teeth and were unable to get her mouth open for her to protrude her tongue. She will open her eyes but seems to have some difficulty performing this action unless it is not forced. She does look to the right, and the eyes do not go to the left at all. She seems to disregard the left side of her body for the most part but that has improved somewhat from when she first presented. She is completely oriented, knows what her birthday is. She eventually became able to lift her left upper extremity up in the air and hold for several seconds on command, she was also able to lift the left lower extremity up and hold it for several seconds on command but both times it required prompting and touching the extremity so she could figure out which one we wanted her to lift. The right side functions normally. I did note a faint bruit in the right carotid region, although this is difficult due to the patient's inability to hold her breath for any length of time voluntarily. (DARLYN BRUNER) GENERAL: Alert, Aphasia. Appears acutely aware. HEAD: Normocephalic, atraumatic. Left sided facial weakness. EYES: Pupils equal, round, and reactive to light. Eyes are fixated to the right , will not look past midline. ENT: Oral mucosa moist, tongue midline. NECK: Full range of motion. Supple. Trachea midline. LUNGS: Clear to auscultation bilaterally, no wheezes, rales, or rhonchi. No respiratory distress. HEART: Regular rate and rhythm. No murmurs, gallops, or rubs. ABDOMEN: Soft, non-tender. Non-distended. Bowel sounds present in all 4 quadrants. EXTREMITIES: LUE is held in flexion against chest. I am able to passively extend LUE although when released it goes back into flexion against chest. During examination patient taps right knee with right hand. Right patella tender to palpation with some swelling. NEUROLOGICAL:See NIH. Aphasia, appears acutely aware. Left sided facial weakness. LUE and LLE weakness. SKIN: Warm, dry, normal turgor. No rashes or lesions noted. (KATHARINE LEO) Course - Laboratory Result Diagrams: 01/29/18 08:34 01/29/18 08:34 - Diagnostic Test Radiology reviewed: Reports reviewed - No acute findings, old ischemic disease and infarcts - EKG Interpretation by Me EKG shows normal: Sinus rhythm, Davenport, Intervals, QRS Complexes. abnormal: ST-T Waves - Borderline T abnormalities Rate: Normal - 76 Rhythm: NSR - Consults Dr. Putnam Consulted provider: other <DARLYN BRUNER - Last Filed: 01/29/18 10:29> - Laboratory Result Diagrams: 01/29/18 08:34 01/29/18 08:34 <KATHARINE LEO - Last Filed: 01/30/18 18:09> - Vital Signs Vital signs: Temp Pulse Resp BP Pulse Ox 99.0 F 87 18 198/96 H 98 01/29/18 10:16 01/29/18 10:25 01/29/18 10:25 01/29/18 10:25 01/29/18 10:25 - Laboratory Laboratory results interpreted by me: 01/29/18 08:34 Sodium 147.2 H Chloride 108 H Est GFR ( Amer) 57 L Est GFR (Non-Af Amer) 47 L Glucose 127 H Total Protein 8.8 H Critical Care Note - Critical Care Note Total time excluding time spent on procedures (mins): 45 <DARLYN BRUNER - Last Filed: 01/29/18 10:29> Discharge <DARLYN BRUNER - Last Filed: 01/29/18 10:29> <KATHARINE LEO - Last Filed: 01/30/18 18:09> - Discharge Clinical Impression: Acute cerebrovascular accident (CVA) Right patella fracture Qualifiers: Encounter type: initial encounter Fracture type: closed Fracture morphology: unspecified fracture morphology Fracture alignment: nondisplaced Qualified Code( s): S82.001A - Unspecified fracture of right patella, initial encounter for closed fracture Condition: Good Disposition: [facility] Referrals: LOCALMD,NO [NO LOCAL MD] - Follow up as needed Scribe Attestation: 01/29/18 10:11 I personally performed the services described in the documentation, reviewed and edited the documentation which was dictated to the scribe in my presence, and it accurately records my words and actions. (DARLYN BRUNER) ED NIH Stroke Scale - NIH Stroke Scale *: 1. NIH scale should be completed with appropriate accompanying assessment tools. *: 2. The NIH should reflect what the patient is capable of doing and should not be coached by the clinician. 1a. Level of Consciousness: 0=Alert;keenly responsive -: 1=Drowsy -: 2=Obtunded -: 3=Coma/unresponsive or reflex to noxious stimuli. 1a. Responses: 1 1b. Orientation Questions: a. What month is it? -: b. How old are you? -: 0=Answers both questions correctly. -: 1=Answers one question correctly or patient is intubated or has orotracheal trauma. -: 2=Answers neither question correctly. 1b. Responses: 0 1c. Response to commands: a. Open and close eyes? -: b. Switcher and release hand? -: Credit is given despite weakness. Demonstration of task is permitted. Substitute command if hands cannot be used. -: 0=Performs both tasks correctly -: 1=Performs one task correctly -: 2=Performs neither task correctly 1c. Responses: 0 2. Gaze: Establish eye contact and instruct patient to "Follow my finger" -: 0=Normal -: 1=Partial gaze palsy. Gaze is abnormal in one or both eyes, but where forced deviation or total gaze paresis is not present. -: 2=Forced deviation or total gaze paresis. 2. Responses: 2 3. Visual Castillo: Sees fingers in all four quadrants. -: 0=No visual loss. -: 1=Partial hemianopsia. -: 2=Complete hemianopsia. -: 3=Bilateral hemianopsia (including Cortical blindness) 3. Responses: 2 4. Facial Movement: Instruct patient to: -: a. Show me your teeth -: b. Raise your eyebrows -: c. Close your eyes -: d. Smile -: 0=Normal symmetrical movement -: 1=Minor paralysis (flattened nasolabial fold, asymmetry on smiling). -: 2=Partial paralysis (total or near total paralysis of lower face). -: 3=Complete paralysis of upper and lower face 4. Responses: 3 5. Motor functions (left arm): Alternate sides and extend each arm with palms down (90 degrees if sitting or 45 degrees for supine). -: 0=No drift;limb holds for full 10 seconds. -: 1=Drift; limb holds but drifts down before full 10 seconds, but does not hit bed. -: 2=Some effort against gravity; limb cannot get to or maintain position. -: 3=No effort against gravity; limb falls. -: 4=No movement. -: UN=Amputation, joint fusion, explain in comments. 5. Responses (left arm): 1 5. Motor Functions (right arm): Alternate sides and extend each arm with palms down (90 degrees if sitting or 45 degrees for supine). -: 0=No drift;limb holds for full 10 seconds. -: 1=Drift; limb holds but drifts down before full 10 seconds, but does not hit bed. -: 2=Some effort against gravity; limb cannot get to or maintain position. -: 3=No effort against gravity; limb falls. -: 4=No movement. -: UN=Amputation, joint fusion, explain in comments. 5. Responses (right arm): 0 6. Motor Functions (left leg): With patient lying supine, alternate sides and extend each leg (30 degrees always while supine). -: 0=No drift, leg holds position for full 5 seconds -: 1=Drift; leg falls before full 5 seconds but does not hit bed. -: 2=Some effort against gravity, leg falls to bed but some effort against gravity. -: 3=No effort against gravity, leg falls to bed immediately. -: 4=No movement. -: UN=Amputation, joint fusion; explain in comments. 6. Responses (left leg): 2 6. Motor Functions (right leg): With patient lying supine, alternate sides and extend each leg (30 degrees always while supine). -: 0=No drift, leg holds position for full 5 seconds -: 1=Drift; leg falls before full 5 seconds but does not hit bed. -: 2=Some effort against gravity, leg falls to bed but some effort against gravity. -: 3=No effort against gravity, leg falls to bed immediately. -: 4=No movement. -: UN=Amputation, joint fusion; explain in comments. 6. Responses (right leg): 0 7. Limb Ataxia: With eyes open instruct patient to: -: a. "Touch your finger to your nose". -: b. "Touch your heel to your dacosta" -: 0=Absent -: 1=Present in one limb. -: 2=Present in two limbs. -: UN=Amputation or joint fusion; explain in comments. 7. Responses: 1 8. Sensory: Test sensation using pinprick or noxious stimuli. Test as many body parts as possible. -: 0=Normal;no sensory loss -: 1=Mile to moderate sensory loss (patient feels pin prick but is less sharp on affected side). -: 2=Severe or total sensory loss. 8. Responses: 1 9. Best Language: Instruct patient to: -: a. "Describe what you see in this picture." -: b. "Name the items in this picture." -: c. "Read these sentences." -: 0=No aphasia, normal -: 1=Mild to moderate aphasia. -: 2=Severe aphasia -: 3=Mute, global aphasia, no usable speech or auditory comprehension. 9. Responses: 2 10. Articulation, Dysarthia: Instruct patient to: -: "Read these words" or "Repeat these words" -: 0=Normal -: 1=Mild to moderate; patient may slur some words but can be understood without difficulty. -: 2=Severe; patients speech so slurred as to be unintelligible in the absence of dysphasia. -: UN=Intubated or other physical barrier, explain in comments. 10. Responses: 2 11. Extinction or inattention: 0=No abnormality -: 1= Visual, tactile, auditory, spatial, or personal inattention or extinction to bilateral simulation in one or the sensory modalities. -: 2=Profound tammy-inattention or tammy-inattention to more than one modality; does not recognize own hand. 11. Responses: 2 Total Score: 19 <DARLYN BRUNER - Last Filed: 01/29/18 10:29> - NIH Stroke Scale When completed:: Before Alteplase *: 1. NIH scale should be completed with appropriate accompanying assessment tools. *: 2. The NIH should reflect what the patient is capable of doing and should not be coached by the clinician. 1a. Level of Consciousness: 0=Alert;keenly responsive -: 1=Drowsy -: 2=Obtunded -: 3=Coma/unresponsive or reflex to noxious stimuli. 1b. Orientation Questions: a. What month is it? -: b. How old are you? -: 0=Answers both questions correctly. -: 1=Answers one question correctly or patient is intubated or has orotracheal trauma. -: 2=Answers neither question correctly. 1c. Response to commands: a. Open and close eyes? -: b. Switcher and release hand? -: Credit is given despite weakness. Demonstration of task is permitted. Substitute command if hands cannot be used. -: 0=Performs both tasks correctly -: 1=Performs one task correctly -: 2=Performs neither task correctly 2. Gaze: Establish eye contact and instruct patient to "Follow my finger" -: 0=Normal -: 1=Partial gaze palsy. Gaze is abnormal in one or both eyes, but where forced deviation or total gaze paresis is not present. -: 2=Forced deviation or total gaze paresis. 3. Visual Castillo: Sees fingers in all four quadrants. -: 0=No visual loss. -: 1=Partial hemianopsia. -: 2=Complete hemianopsia. -: 3=Bilateral hemianopsia (including Cortical blindness) 4. Facial Movement: Instruct patient to: -: a. Show me your teeth -: b. Raise your eyebrows -: c. Close your eyes -: d. Smile -: 0=Normal symmetrical movement -: 1=Minor paralysis (flattened nasolabial fold, asymmetry on smiling). -: 2=Partial paralysis (total or near total paralysis of lower face). -: 3=Complete paralysis of upper and lower face 5. Motor functions (left arm): Alternate sides and extend each arm with palms down (90 degrees if sitting or 45 degrees for supine). -: 0=No drift;limb holds for full 10 seconds. -: 1=Drift; limb holds but drifts down before full 10 seconds, but does not hit bed. -: 2=Some effort against gravity; limb cannot get to or maintain position. -: 3=No effort against gravity; limb falls. -: 4=No movement. -: UN=Amputation, joint fusion, explain in comments. 5. Motor Functions (right arm): Alternate sides and extend each arm with palms down (90 degrees if sitting or 45 degrees for supine). -: 0=No drift;limb holds for full 10 seconds. -: 1=Drift; limb holds but drifts down before full 10 seconds, but does not hit bed. -: 2=Some effort against gravity; limb cannot get to or maintain position. -: 3=No effort against gravity; limb falls. -: 4=No movement. -: UN=Amputation, joint fusion, explain in comments. 6. Motor Functions (left leg): With patient lying supine, alternate sides and extend each leg (30 degrees always while supine). -: 0=No drift, leg holds position for full 5 seconds -: 1=Drift; leg falls before full 5 seconds but does not hit bed. -: 2=Some effort against gravity, leg falls to bed but some effort against gravity. -: 3=No effort against gravity, leg falls to bed immediately. -: 4=No movement. -: UN=Amputation, joint fusion; explain in comments. 6. Motor Functions (right leg): With patient lying supine, alternate sides and extend each leg (30 degrees always while supine). -: 0=No drift, leg holds position for full 5 seconds -: 1=Drift; leg falls before full 5 seconds but does not hit bed. -: 2=Some effort against gravity, leg falls to bed but some effort against gravity. -: 3=No effort against gravity, leg falls to bed immediately. -: 4=No movement. -: UN=Amputation, joint fusion; explain in comments. 7. Limb Ataxia: With eyes open instruct patient to: -: a. "Touch your finger to your nose". -: b. "Touch your heel to your dacosta" -: 0=Absent -: 1=Present in one limb. -: 2=Present in two limbs. -: UN=Amputation or joint fusion; explain in comments. 8. Sensory: Test sensation using pinprick or noxious stimuli. Test as many body parts as possible. -: 0=Normal;no sensory loss -: 1=Mile to moderate sensory loss (patient feels pin prick but is less sharp on affected side). -: 2=Severe or total sensory loss. 9. Best Language: Instruct patient to: -: a. "Describe what you see in this picture." -: b. "Name the items in this picture." -: c. "Read these sentences." -: 0=No aphasia, normal -: 1=Mild to moderate aphasia. -: 2=Severe aphasia -: 3=Mute, global aphasia, no usable speech or auditory comprehension. 10. Articulation, Dysarthia: Instruct patient to: -: "Read these words" or "Repeat these words" -: 0=Normal -: 1=Mild to moderate; patient may slur some words but can be understood without difficulty. -: 2=Severe; patients speech so slurred as to be unintelligible in the absence of dysphasia. -: UN=Intubated or other physical barrier, explain in comments. 11. Extinction or inattention: 0=No abnormality -: 1= Visual, tactile, auditory, spatial, or personal inattention or extinction to bilateral simulation in one or the sensory modalities. -: 2=Profound tammy-inattention or tammy-inattention to more than one modality; does not recognize own hand. <KATHARINE LEO - Last Filed: 01/30/18 18:09> - NIH Stroke Scale Notes: The patient is able to agree that her birthday is in [birth year] and then she held up 2 fingers to indicate it is February [birth year]. She is also not in agreement that she is 82 years old and will be 83 years old in a few weeks. She is unable to speak, there is a left facial paralysis, she is unable to open her mouth and protrude her tongue. She holds her left upper extremity tightly against her chest and waist with the elbow flexed. Initially she did not use it at all, later she was able to lifted up when she was instructed to use that particular extremity and the extremity was touched to help her figure out which one to use. (DARLYN BRUNER) ED Alteplase Inc/Exc Criteria - Inclusion Criteria: 1: Patient presented to ED within 3 hours of acute ischemic stroke symptom onset ? -: No 2: Did baseline CT exclude intracranial hemorrhage and/or other risk factors? -: Yes 3: Is the age of the patient 18 years of age or greater? -: Yes : If any of the above questions are answered "NO" then stop, patient is not a candidate for Alteplase, : If all of the above questions are answered "YES" then continue with Exclusion Criteria. - Exclusion Criteria: 1: Is there evidence of intracranial hemorrhage on baseline CT? 2: Is there suspicion of subarachnoid hemorrhage (even if CT negative)? 3: Is there a history of serious head trauma, recent previous stroke or PA within 3 months? 4: Does the patient have a clinical presentation consistent with PA or post-PA pericarditis? 5: Is there history of intracranial hemorrhage? 6: On repeated measurement is Systolic BP greater than 185mmHg or Diastolic BP greater that 110 mmHg and is aggressive treatment needed to reduce blood pressure to these limits (e.g. constant infusion of an anti-hypertensive)? 7: Did the patient awake with stroke symptoms? -: Yes - The patient awoke between 6:30 AM and 7 AM with symptoms. 8: Has the patient had a lumbar puncture or an arterial puncture at a non- compressile site within 7 days? -: No 9: With in the last 14 days did the patient have surgery or major trauma? -: No - She did suffer a fall causing a nondisplaced right patellar fracture 6 days 10: Is the patient or less than 2 weeks? 11: Was there any active bleeding or acute trauma? 12: Does the patient have intracranial neoplasm, arteriovenous malformation or aneurysm? 13: Does the patient have abnormal glucose (less than 50 or greater than 400mg/ dl)? Record glucose in Comment. 14: Patient has rapidly improving symptoms at the time Alteplase is to be Administered. -: No 15: Does the patient have any risks for bleeding, including but not limited to: a.: Current use of Coumadin with PT greater than 15 seconds or INR greater than 1.7. b.: Current use of Pradaxa (Dabigatran). c.: Heparin administereed within the past 48 hours and PTT elevated. d.: Platelet count less than 100,000/mm. e.: Major surgery or serious trauma within 14 days. f.: Gastrointestinal or gynecological urinary bleeding within 14 days. g.: Myocardial Infarction (PA) within 3 months. -: No : If the answer to any of the above questions is "YES" then stop, the patient is not a candidate for Alteplase. : If the answer to all of the above questions is "NO" then the patient may be eligible for the Administration of Alteplase. : If the patient is noted to have seizure activity at onset of Stroke symptoms; Consult Neurologist for further evaluation. <DARLYN BRUNER - Last Filed: 01/29/18 10:29> - Date/Time patient last known well: Date/Time: 01/29/2018 05:00 - Date/Time patient arrived in ED: _: 01/29/2018 08:54 - Inclusion Criteria: 1: Patient presented to ED within 3 hours of acute ischemic stroke symptom onset ? -: No 2: Did baseline CT exclude intracranial hemorrhage and/or other risk factors? 3: Is the age of the patient 18 years of age or greater? -: Yes : If any of the above questions are answered "NO" then stop, patient is not a candidate for Alteplase, : If all of the above questions are answered "YES" then continue with Exclusion Criteria. - The patient is: -: Included and is eligible to receive Alteplase. *Initiate bed placement at higher level of care* --: No Reviewd risks & benefits of thrombolytic therapy: I have reviewed the risks and benefits of thrombolytic therapy with the patient and/or his/her family. -: Excluded and not eligible to receive Alteplase for the above exclusions. -: Excluded and not eligible to receive Alteplase for other reasons (specify in comments): - Diagnosis of TIA: -: Patient presented with transient symptoms that are now resolved and no other neurologic findings are currently present. List symptoms in comments. -: Patient is NOT a candidate for tPA. -: Yes -: ____(put name in comment) has been consulted for admission and continued evaluation of risk factor assessment. <KATHARINE LEO - Last Filed: 01/30/18 18:09> Scribe Documentation - Scribe Written by Melodie:: Melodie Dawn, 01/29/2018 09:48 acting as scribe for DrRomeo:: Kwame <KATHARINE LEO - Last Filed: 01/30/18 18:09>
[2018-01-29 09:11] LABS: ABSOLUTE EOSINOPHILS # (AUTO) 0.1 10^3/uL (0.0-0.6); ABSOLUTE LYMPHOCYTES (AUTO) 1.2 10^3/uL (0.5-4.7); ABSOLUTE MONOCYTES (AUTO) 0.6 10^3/uL (0.1-1.4); ABSOLUTE NEUT (AUTO) 3.4 10^3/uL (1.7-8.2); BASOPHILS % (AUTO) 0.8 % (0-2); EOSINOPHILS % (AUTO) 1.3 % (0-6); HEMATOCRIT 38.8 % (36.0-47.0); HEMOGLOBIN 12.8 g/dL (12.0-15.5); LYMPHOCYTES % (AUTO) 22.6 % (13-45); MEAN CORPUSCULAR HEMOGLOBIN 27.8 pg (27.0-33.4); MEAN CORPUSCULAR HGB CONC 33.1 g/dL (32.0-36.0); MEAN CORPUSCULAR VOLUME 84 fl (80-97); PLATELET COUNT 193 10^3/uL (150-450); RED BLOOD COUNT 4.62 10^6/uL (3.72-5.28); RED CELL DISTRIBUTION WIDTH 13.8 % (11.5-14.0); SEGMENTED NEUTROPHILS % (AUTO) 64.3 % (42-78); TOTAL CELLS COUNTED % (AUTO) 100 %; WHITE BLOOD COUNT 5.3 10^3/uL (4.0-10.5)
--- NOTE | 2018-01-29 09:31 | RADIOLOGY REPORT (SQ) ---
EXAM DESCRIPTION: CT HEAD WITHOUT COMPLETED DATE/TIME: 01/29/2018 9:09 am REASON FOR STUDY: stroke S/S COMPARISON: None. TECHNIQUE: Axial images acquired through the brain without intravenous contrast. Images reviewed wi th bone, brain and subdural windows. Additional sagittal and coronal reconstructions were generated. Images stored on PACS. All CT scanners at this facility use dose modulation, iterative reconstruction, and/or weight based d osing when appropriate to reduce radiation dose to as low as reasonably achievable (ALARA). [facility]: Dose Right [facility]: CareDose [facility]: Dose Right [facility]: Teradose 4D [facility]: OmnyPay RADIATION DOSE: CT Rad equipment meets quality standard of care and radiation dose reduction techniq ues were employed. CTDIvol: 53.2 mGy. DLP: 1070 mGy-cm. mGy. LIMITATIONS: None. FINDINGS: VENTRICLES: Normal size and contour. CEREBRUM: No CT evidence of acute large territory ischemic change, acute intracranial hemorrhage, mas s effect, or midline shift. Extensive low attenuation in the bifrontal and biparietal white matter from chronic small vessel isch emic change. Old lacunar infarcts are present in the bilateral basal ganglia left greater than right and left thalamus/posterior limb internal capsule. CEREBELLUM: No masses. No hemorrhage. No alteration of density. No evidence for acute infarction. EXTRAAXIAL SPACES: No fluid collections. No masses. ORBITS AND GLOBE: No intra- or extraconal masses. Normal contour of globe without masses. CALVARIUM: No fracture. PARANASAL SINUSES: No fluid or mucosal thickening. SOFT TISSUES: No mass or hematoma. OTHER: No other significant finding. IMPRESSION: No definite acute findings. Chronic small vessel ischemic change in the hemispheric white matter with multiple old lacunar infarc ts as above. EVIDENCE OF ACUTE STROKE: NO. COMMENT: Pertinent findings on the imaging study reported as a CRITICAL RESULT to DARLYN BRUNER MD at09:16 on 01/29/2018. Category of Critical Result: CT code stroke Quality ID # [id number]: Final reports with documentation of one or more dose reduction techniques (e.g., Au tomated exposure control, adjustment of the mA and/or kV according to patient size, use of iterative reconstruction technique) TECHNICAL DOCUMENTATION: JOB ID: [id number] [employer]- All Rights Reserved Reading location - IP/workstation name: [facility]
--- NOTE | 2018-01-29 09:32 | RADIOLOGY REPORT (SQ) ---
EXAM DESCRIPTION: CHEST SINGLE VIEW COMPLETED DATE/TIME: 01/29/2018 9:04 am REASON FOR STUDY: stroke S/S COMPARISON: AP chest 02/04/2017 CT chest 02/16/2016 EXAM PARAMETERS: NUMBER OF VIEWS: One view. TECHNIQUE: Single frontal radiographic view of the chest acquired. RADIATION DOSE: NA LIMITATIONS: None. FINDINGS: LUNGS AND PLEURA: No opacities, masses or pneumothorax. No pleural effusion. MEDIASTINUM AND HILAR STRUCTURES: No masses. Contour normal. HEART AND VASCULAR STRUCTURES: Massive cardiomegaly, stable. BONES: No acute findings. HARDWARE: None in the chest. OTHER: No other significant finding. IMPRESSION: Marked cardiomegaly, stable. No acute infiltrates. No pleural effusions. TECHNICAL DOCUMENTATION: JOB ID: [id number] [employer]- All Rights Reserved Reading location - IP/workstation name: [facility]
[2018-01-29 09:34] LABS: ALANINE AMINOTRANSFERASE 24 U/L (9-52); ALBUMIN 4.5 g/dL (3.5-5.0); ALKALINE PHOSPHATASE 73 U/L (38-126); ANION GAP 15 (5-19); ASPARTATE AMINO TRANSFERASE 36 U/L (14-36); BILIRUBIN,DIRECT 0.4 mg/dL (0.0-0.4); BILIRUBIN,TOTAL 0.9 mg/dL (0.2-1.3); BLOOD UREA NITROGEN 20 mg/dL (7-20); CALCIUM 10.2 mg/dL (8.4-10.2); CARBON DIOXIDE 24 mmol/L (22-30); CHLORIDE 108 mmol/L (98-107); CREATINE KINASE 134 U/L (30-135); GLUCOSE 127 mg/dL (75-110); POTASSIUM 4.5 mmol/L (3.6-5.0); SODIUM 147.2 mmol/L (137-145); TOTAL PROTEIN 8.8 g/dL (6.3-8.2)
[2018-01-29 09:45] LABS: CREATINE KINASE MB 2.99 ng/mL (<4.55); TROPONIN I 0.017 ng/mL
--- NOTE | 2018-01-29 09:55 | RADIOLOGY REPORT (SQ) ---
EXAM DESCRIPTION: KNEE RIGHT 2 VIEWS COMPLETED DATE/TIME: 01/29/2018 9:34 am REASON FOR STUDY: Recent fracture by history, acute CVA COMPARISON: None. NUMBER OF VIEWS: Two views. TECHNIQUE: AP and lateral radiographic images acquired of the right knee. LIMITATIONS: External splint. FINDINGS: Bones are osteopenic. There is a nondisplaced fracture of the inferior half of the patell a. No other fracture identified. Small effusion. IMPRESSION: Fracture of the patella. TECHNICAL DOCUMENTATION: JOB ID: [id number] [employer]- All Rights Reserved Reading location - IP/workstation name: [email or web address]
[2018-01-29 09:57] LABS: INTERNATIONAL RATION (INR) 1.04; PROTHROMBIN TIME 14.1 SEC (11.4-15.4)
[2018-01-29 10:03] LABS: PARTIAL THROMBOPLASTIN TIME 30.3 SEC (23.5-35.8)
[2018-01-29 10:57] VITALS: BP 198/96
--- NOTE | 2018-01-29 15:38 | EKG REPORT ---
SEVERITY:- BORDERLINE ECG - SINUS RHYTHM BORDERLINE T WAVE ABNORMALITIES : Confirmed by: Cathi Jiménez MD 29-Jan-2018 15:37:41
== END 2018-01-29 10:30 | disposition short-term general hospital (02) ==
LOC: ER 08:54
DX: I63.9 Cerebral infarction, unspecified (principal); R47.01 Aphasia; R29.810 Facial weakness; G81.94 Hemiplegia, unspecified affecting left nondominant side; S82.001D Unspecified fracture of right patella, subsequent encounter for closed fracture with routine healing; W19.XXXD Unspecified fall, subsequent encounter; I10 Essential (primary) hypertension; R09.89 Other specified symptoms and signs involving the circulatory and respiratory systems
CPT/HCPCS: 36415; 51702; 70450; 71045; 80053; 82550; 82553; 84484; 85025; 85610; 85730; 93005; 93010; 99291